=== PATIENT | female | born 1995 | race Caucasian/White ===

== ENCOUNTER → 2016-06-30 | Outpatient (REF) | payer OTHER | END | disposition home or self-care (01) | LOC: M LAB REF 15:05 | PROVIDERS: ATTEND Physician Assistant | DX: R30.0 Dysuria (principal) ==

== ENCOUNTER → 2017-05-22 | Outpatient (REF) | payer OTHER | LOC: M LAB REF 16:22 | PROVIDERS: ATTEND Physician Assistant | DX: J02.9 Acute pharyngitis, unspecified (principal) ==

== ENCOUNTER → 2021-01-10 | Outpatient (CLI) | payer OTHER ==
[2021-01-10 12:06] LABS: BASO % 0.4 % (0.0-1.0); EOS # 0.3 10^3/uL (0.0-0.5); EOS % 3.7 % (0.0-3.0); HEMATOCRIT 37.9 % (36.0-47.0); HEMOGLOBIN 12.5 g/dl (12.0-15.5); LYMPH # 1.8 10^3/uL (1.5-5.0); LYMPH % 23.5 % (24.0-44.0); MEAN CORPUSCULAR HEMOGLOBIN 32.8 pg (27.0-33.0); MEAN CORPUSCULAR VOLUME 99.5 fl (80.0-96.0); MONO # 0.5 10^3/uL (0.0-0.8); MONO % 6.8 % (2.0-8.0); NEUTROPHILS % 65.2 % (36.0-66.0); PLATELET COUNT, AUTOMATED 189 10^3/uL (150-450); RED BLOOD COUNT 3.81 10^6/uL (4.00-5.40); WHITE BLOOD COUNT 7.6 10^3/uL (4.0-10.0)
[2021-01-10 13:13] LABS: HIV 1&2 SCREEN CENTAUR NEGATIVE (NEGATIVE)
[2021-01-10 14:46] LABS: GC DNA AMPLIFICATION NEGATIVE (NEGATIVE)
== END ==
LOC: M PLALAB 09:22
PROVIDERS: ATTEND Advanced Practice Midwife
DX: Z34.01 Encounter for supervision of normal first pregnancy, first trimester (principal)

== ENCOUNTER → 2021-01-23 | Outpatient (REF) | payer OTHER | LOC: M SFHCWAGY 19:11 | PROVIDERS: ATTEND Advanced Practice Midwife | DX: Z36.89 Encounter for other specified antenatal screening (principal) ==

== ENCOUNTER → 2021-02-06 | Outpatient (CLI) | payer OTHER ==
--- NOTE | 2021-02-07 08:08 | REP ---
INDICATION: PREG, ANATOMY COMPARISON: None. TECHNIQUE: Transabdominal obstetrical ultrasound with color Doppler evaluation. FINDINGS: Examination demonstrates a single live intrauterine in variable presentation. motion is identified by technologist. Placenta is noted anterior and grade 0 without evidence for placenta previa or abruption. Amniotic fluid volume is normal. Cervix measures 3.4 cm in length and appears closed.. Selected gestational age: 19 weeks 0 days with PARISH 07/03/2021. Gestational age by current measurements 18 weeks 5 days with PARISH 07/05/2021. FHR equals 138 beats per minute. BPD: 4.2 cm at 18 weeks 5 days HC: 15.5 cm at 18 weeks 3 days AC: 13.4 cm at 18 weeks 6 days FL: 2.9 cm at 19 weeks 0 days HL: 2.8 cm at 18 weeks 6 days HC/AC: 1.16 Estimated weight 261 grams (37thpercentile). Anatomical assessment demonstrates normal structures including cranium, choroid plexus, cavum, cerebellum/posterior fossa, facial features, lungs, four-chamber heart/ventricular outflow tracts, diaphragm, stomach, cord insertion, kidneys, spine, and extremities. Incomplete evaluation of the bladder and cord due to positioning. Four-chamber heart views demonstrate echogenic foci in the cardiac ventricles likely prominent chordae tendineae. IMPRESSION: Single live intrauterine in variable presentation demonstrating appropriate interval growth/weight. Anatomical limitations as noted above warrant follow-up. <Electronically signed by Jose Guadalupe Gonzalez > 02/07/21 [id number]
== END ==
LOC: M RAD 16:02
PROVIDERS: ATTEND Advanced Practice Midwife
DX: Z36.3 Encounter for antenatal screening for malformations (principal); Z3A.18 18 weeks gestation of pregnancy

== ENCOUNTER → 2021-03-06 | Outpatient (CLI) | payer OTHER ==
--- NOTE | 2021-03-06 16:05 | REP ---
INDICATION: PREG, F/U ANATOMY. COMPARISON: Comparison study is from February 06, 2021. TECHNIQUE: Transabdominal obstetric sonography. FINDINGS: Scanning through the gravid uterus demonstrates a viable single intrauterine gestation in cephalic lie. motion is observed and heart rate is recorded at 130 beats per minute. A anterior placenta is seen, grade 1, without evidence of placenta previa. Closed cervical length is measured at 3.4 cm transabdominally. No extrauterine abnormality is observed. Amniotic fluid is subjectively normal. An echogenic focus is again noted in the right and left ventricle. Urinary bladder is seen today and is unremarkable. Three-vessel cord is observed. In conjunction with the previous study, anatomic survey is felt to be complete. Biometry chart: BPD 5.6 cm, 23 weeks 1 day Head circumference 20.6 cm, 22 weeks 5 days Abdominal circumference 18.1 cm, 23 weeks 0 days Femur length 4.2 cm, 23 weeks 3 days Humeral length 3.8 cm, 23 weeks 4 days HC AC ratio normal 1.14 Cephalic index normal 0.76 Estimated weight 566 g, 1 lb 3 oz, 49th percentile for 23 weeks 0 days IMPRESSION: Viable single intrauterine gestation at 23 weeks 1 days by today's composite sonographic criteria. PARSIH by today's sonography 02 July 2021. No complication identified. Expected gestational age estimate based on earlier sonography 23 weeks 0 days. PARISH by prior sonography 03 July 2021. Appropriate interval growth. There are small echogenic foci in the right and left ventricle likely chordee tendineae. anatomic survey is otherwise complete and unremarkable. <Electronically signed by Vaibhav Paige > 03/06/21 [id number]
== END ==
LOC: M RAD 15:01
PROVIDERS: ATTEND Advanced Practice Midwife
DX: Z36.2 Encounter for other antenatal screening follow-up (principal); Z3A.23 23 weeks gestation of pregnancy

== ENCOUNTER → 2021-03-23 | Outpatient (CLI) | payer OTHER | LOC: M PLALAB 11:04 | PROVIDERS: ATTEND Advanced Practice Midwife | DX: Z34.82 Encounter for supervision of other normal pregnancy, second trimester (principal); Z53.8 Procedure and treatment not carried out for other reasons ==

== ENCOUNTER → 2021-03-23 | Outpatient (CLI) | payer OTHER ==
[2021-03-23 13:50] LABS: HEMATOCRIT 36.2 % (36.0-47.0); HEMOGLOBIN 11.8 g/dl (12.0-15.5); MEAN CORPUSCULAR HEMOGLOBIN 33.2 pg (27.0-33.0); MEAN CORPUSCULAR HGB CONC 32.6 g/dl (32.0-36.5); PLATELET COUNT, AUTOMATED 187 10^3/uL (150-450); RED BLOOD COUNT 3.55 10^6/uL (4.00-5.40); WHITE BLOOD COUNT 8.5 10^3/uL (4.0-10.0)
== END ==
LOC: M PLALAB 10:04
PROVIDERS: ATTEND Advanced Practice Midwife
DX: Z34.82 Encounter for supervision of other normal pregnancy, second trimester (principal)

== ENCOUNTER → 2021-06-05 | Outpatient (REF) | payer OTHER ==
[~2021-06-05] MED LIST: CIPR-249 PO; FLOM0.4C39 PO; KETO10TAB PO; birth control
== END ==
LOC: M SFHCWAGY 12:40
PROVIDERS: ATTEND Advanced Practice Midwife
DX: Z36.89 Encounter for other specified antenatal screening (principal); O99.213 Obesity complicating pregnancy, third trimester; Z3A.00 Weeks of gestation of pregnancy not specified

== ENCOUNTER → 2021-06-18 | Outpatient (CLI) | payer OTHER ==
--- NOTE | 2021-06-18 13:08 | REP ---
INDICATION: GROWTH COMPARISON: 03/06/2020 TECHNIQUE: Transabdominal scanning FINDINGS: Multiple ultrasonographic images of the gravid uterus shows a single living intrauterine gestation in the cephalic presentation. Doppler interrogation of the heart shows a heart rate of 143 beats per minute. The placenta is anterior and not low-lying. The cervix measures 4.1 cm in length and is closed. The subjective amniotic fluid volume is within normal limits. The calculated amniotic fluid index is 12.7 with an expected range of 7.3-24.0. Doppler interrogation of the umbilical artery shows an A\B ratio of 1.84. This is within the normal range. BPD: 9.2 cm 37 weeks 3 days HC: 33.0 cm 37 weeks 4 days AC: 33.6 cm 37 weeks 3 days FL: 7.4 cm 37 weeks 5 days The estimated weight is 3236 g which is at the 53rd percentile. IMPRESSION: Single living intrauterine gestation as described above with an estimated gestational age of 37 weeks 3 days via composite criteria and an estimated date of delivery of 07/06/2021 by today's exam. <Electronically signed by Peterson Gonzalez > 06/18/21 1000
== END ==
LOC: M WHC 11:58
PROVIDERS: ATTEND Advanced Practice Midwife
DX: O26.843 Uterine size-date discrepancy, third trimester (principal); O99.213 Obesity complicating pregnancy, third trimester; Z3A.37 37 weeks gestation of pregnancy

== ENCOUNTER 2021-07-10 10:48 | Inpatient (IN) | payer OTHER ==
[2021-07-10] VITALS (44 sets, daily range): BP systolic 89–135; BP diastolic 45–76
[~2021-07-10] VITALS: Ht 167.6 cm; Wt 101.0 kg
[2021-07-10] MEDS ORDERED: LACTATED RINGER'S 1000 ML IV STA (11:25)
[2021-07-10] MEDS ORDERED: PRENTAB9 PO (11:58)
[2021-07-10 12:00] LABS: HEMATOCRIT 38.4 % (36.0-47.0); HEMOGLOBIN 13.4 g/dl (12.0-15.5); MEAN CORPUSCULAR HGB CONC 34.9 g/dl (32.0-36.5); MEAN CORPUSCULAR VOLUME 94.6 fl (80.0-96.0); PLATELET COUNT, AUTOMATED 265 10^3/uL (150-450); RED BLOOD COUNT 4.06 10^6/uL (4.00-5.40); WHITE BLOOD COUNT 13.1 10^3/uL (4.0-10.0)
[2021-07-10] MEDS ORDERED: HOME MED LIST COMPLETE! XX SCH (12:00)
[2021-07-10] MEDS ORDERED: FENTANYL 2MCG/ML ROPIVACAINE 0.2% IN 0.9% NACL 100ML IVBAG As Ordered ONE (12:19)
[2021-07-10] MEDS: LR 1,000 ML IV SCH ×2 (12:56→17:00)
[2021-07-10] MEDS ORDERED: LACTATED RINGER'S 1000 ML IV PRN (13:20)
[2021-07-10] MEDS ORDERED: ONDANSETRON 4MG/2ML VIAL IV PRN (13:20)
[2021-07-10] MEDS ORDERED: NALOXONE INJ 0.4MG/1ML VIAL (J2310 PER 1MG) IV PRN (13:20)
[2021-07-10] MEDS ORDERED: diphenhydrAMINE 50MG/ML VIAL (J1200) IV PRN (13:20)
[2021-07-10] MEDS ORDERED: EPIDURAL/PCA KEYS XX PRN (13:20)
[2021-07-10] MEDS ORDERED: EPIDURAL COMMENT XX SCH (13:20)
[2021-07-10] MEDS ORDERED: REFRIGERATOR IV KEYS XX PRN (13:20)
[2021-07-10] MEDS: ePHEDrine SULFATE 25 MG/5 ML(5MG/ML) SYRINGE IV PRN ×2 (14:05→17:41)
[2021-07-10] MEDS: FENTANYL/ROPIVACAINE/NACL BAG 100 ML EPIDURAL SCH ×2 (14:21→23:27)
[2021-07-10] MEDS ORDERED: OXYTOCIN 30 UNITS IN 0.9% NaCl 500ML IV BAG (J2590) As Ordered ONE (19:06)
[2021-07-11] VITALS (9 sets, daily range): BP systolic 99–115; BP diastolic 55–60
[2021-07-11] MEDS ORDERED: ceFAZolin 2 GM/D5W 50 ML IV BAG (J0690 PER 500MG) As Ordered ONE (00:27)
[2021-07-11] MEDS ORDERED: AZITHROMYCIN INJ 500MG VIAL As Ordered ONE (00:27)
[2021-07-11] MEDS ORDERED: BICITRA 30ML SOLN UDC As Ordered ONE (00:27)
[2021-07-11] MEDS ORDERED: LIDOCAINE 2% W/EPINEPHRINE 20ML VIAL **PRES FREE As Ordered ONE ×2 (00:39→00:40)
[2021-07-11] MEDS ORDERED: AZITHROMYCIN INJ 500 MG, VIAL MATE ADAPTER 1 EACH in NS 250 ML IV ONE (01:00)
[2021-07-11] MEDS ORDERED: ceFAZolin SOD 2 GM in IV 1 EA IV ONE (01:00)
[2021-07-11] MEDS ORDERED: BICITRA 30ML SOLN UDC PO ONE (01:00)
[2021-07-11] MEDS ORDERED: MORPHINE PRES-FREE INJ 10 MG/10 ML VIAL (J2274) As Ordered ONE (01:07)
[2021-07-11] MEDS ORDERED: KETOROLAC 60MG 2ML VIAL As Ordered ONE (01:07)
[2021-07-11] MEDS ORDERED: ONDANSETRON 4MG/2ML VIAL As Ordered ONE (01:07)
[2021-07-11 01:24] LABS: CORD GAS ABE V -11.8; CORD GAS O2 SAT V 29.4 %; CORD GAS PCO2 V 55.7 mmHg; CORD GAS PH V 7.128 UNITS; CORD GAS PO2 V 17.6 mmHg; CORD GAS TCO2 V 19.7 MEQ/L
[2021-07-11 01:26] LABS: CORD GAS ABE A -14.2; CORD GAS HCO3 A 18.6 MEQ/L; CORD GAS PCO2 A 75.3 mmHg; CORD GAS PH A 7.01 UNITS; CORD GAS PO2 A 15.9 mmHg; CORD GAS SBC A 12.4 MEQ/L; CORD GAS TCO2 A 20.9 MEQ/L
[2021-07-11] MEDS ORDERED: METOCLOPRAMIDE INJ 10MG/2ML VIAL (J2765 PER 1) IV PRN (01:35)
[2021-07-11] MEDS ORDERED: NALOXONE INJ 0.4MG/1ML VIAL (J2310 PER 1MG) IV PRN ×2 (01:35)
[2021-07-11] MEDS ORDERED: diphenhydrAMINE 50MG/ML VIAL (J1200) IV PRN (01:35)
[2021-07-11] MEDS ORDERED: ONDANSETRON 4MG/2ML VIAL IV PRN ×2 (01:35→02:00)
[2021-07-11] MEDS ORDERED: NALBUPHINE HCL 10 MG/ML AMP (J2300) IV PRN (01:35)
[2021-07-11] MEDS ORDERED: MEASLES,MUMPS,RUBELLA VACCINE INJ (MMR-II) (90707) SC SCH (01:45)
[2021-07-11] MEDS ORDERED: PERCOCET 5MG/325MG TAB PO PRN (01:45)
[2021-07-11] MEDS: LR 1,000 ML IV SCH ×3 (01:45→17:45)
[2021-07-11] MEDS ORDERED: SIMETHICONE 80MG CHEW TAB PO PRN (01:45)
[2021-07-11] MEDS ORDERED: OXYTOCIN DRIP 30 UNITS in IV 1 EA IV SCH (01:45)
[2021-07-11] MEDS ORDERED: RHOGAM 300 MCG (1500 IU) INJ (J2790) IM SCH (01:45)
[2021-07-11] MEDS ORDERED: OXYTOCIN 30 UNITS IN 0.9% NaCl 500ML IV BAG (J2590) As Ordered ONE (01:50)
[2021-07-11] MEDS ORDERED: LR 1,000 ML IV SCH (02:00)
[2021-07-11] MEDS ORDERED: oxyCODONE 5MG TAB PO PRN (02:00)
[2021-07-11] MEDS ORDERED: fentaNYL 100 MCG/2 ML INJECTION (J3010) IV PRN (02:00)
[2021-07-11] MEDS: PERCOCET 5MG/325MG TAB PO PRN ×2 (05:56→21:45)
[2021-07-11] MEDS ORDERED: IBUP80TA PO (06:42)
[2021-07-11] MEDS ORDERED: OXYC1TAB23 PO (06:42)
[2021-07-11] MEDS: KETOROLAC 30 MG/ML 1ML VIAL IV SCH ×3 (09:12→20:47)
[2021-07-11] MEDS: PRENATAL VITAMINS CHEWABLE TABLET PO SCH (09:12)
[2021-07-12] MEDS: LR 1,000 ML IV SCH (01:45)
[2021-07-12 02:00] VITALS: BP 134/70
[2021-07-12] MEDS: IBUPROFEN 800 MG TAB PO SCH ×3 (04:45→19:46)
[2021-07-12 05:47] VITALS: BP 114/60
[2021-07-12] MEDS: PERCOCET 5MG/325MG TAB PO PRN (06:30)
[2021-07-12 08:59] LABS: HEMATOCRIT 29.9 % (36.0-47.0); MEAN CORPUSCULAR HEMOGLOBIN 33.1 pg (27.0-33.0); MEAN CORPUSCULAR HGB CONC 33.4 g/dl (32.0-36.5); PLATELET COUNT, AUTOMATED 200 10^3/uL (150-450); RED BLOOD COUNT 3.02 10^6/uL (4.00-5.40); WHITE BLOOD COUNT 13.1 10^3/uL (4.0-10.0)
[2021-07-12 10:00] VITALS: BP 131/60
[2021-07-12] MEDS: PRENATAL VITAMINS CHEWABLE TABLET PO SCH (11:27)
[2021-07-12 14:00] VITALS: BP 135/79
[2021-07-12 17:47] VITALS: BP 114/66
[2021-07-12 22:00] VITALS: BP 120/70
[2021-07-13] MEDS: IBUPROFEN 800 MG TAB PO SCH (04:05)
[2021-07-13 06:00] VITALS: BP 105/60
[2021-07-13] MEDS: PRENATAL VITAMINS CHEWABLE TABLET PO SCH (09:02)
== END 2021-07-13 11:40 | disposition home or self-care (01) | DRG 540 ==
LOC: M LDO 10:48 → M LDI 11:14 → M OBS 07-11 03:15
PROVIDERS: ADMIT Specialist; ATTEND Specialist
PROC: 10D00Z1 Extraction of Products of Conception, Low, Open Approach (ICD-10-PCS; principal; 2021-07-11 01:04)
DX: O48.0 Post-term pregnancy (principal); U07.1 COVID-19; O64.0XX0 Obstructed labor due to incomplete rotation of fetal head, not applicable or unspecified; Z3A.41 41 weeks gestation of pregnancy; O77.0 Labor and delivery complicated by meconium in amniotic fluid; Z37.0 Single live birth; O98.52 Other viral diseases complicating childbirth